=== PATIENT | male | born 1960 | race Caucasian/White ===

== ENCOUNTER 2016-05-12 23:54 | Emergency (ER) | payer MEDICARE, MEDICAID ==
[2016-05-13 00:08] VITALS: BP 140/98
--- NOTE | 2016-05-13 00:29 | ER Document Report ---
ED General - General Chief Complaint: Chest Pain Stated Complaint: CHEST PAIN Mode of Arrival: Medic Information source: Patient Notes: 56 yr old male with hx of htn, CAD, [place] in 2004 presents iwth complaints of midsternal chest pain that started prior ot arrival . pt denies any fevers or chills, nausea or vomiting. pt given nitro which helped with pain by ems but then pain returned, given fentanyl which has resolved his pain TRAVEL OUTSIDE OF THE [place] IN LAST 30 DAYS: No - HPI Onset: Just prior to arrival Onset/Duration: Sudden Quality of pain: Other - squeezing Severity: Moderate Pain Level: 2 Associated symptoms: Chest pain Exacerbated by: Denies Relieved by: Denies Similar symptoms previously: Yes Recently seen / treated by doctor: No - Related Data Allergies/Adverse Reactions: No Known Allergies Allergy (Verified 04/27/15 12:15) Past Medical History - Social History Smoking Status: Current Every Day Smoker Cigarette use (# per day): Yes Chew tobacco use (# tins/day): No Smoking Education Provided: Yes - Patient counselled regarding cessation for 4 minutes Family History: Reviewed & Not Pertinent - Past Medical History Cardiac Medical History: Reports: Hx Coronary Artery Disease, Hx Heart Attack, Hx Hypercholesterolemia, Hx Hypertension Pulmonary Medical History: Reports: Hx COPD Denies: Hx Asthma, Hx Bronchitis, Hx Pneumonia Neurological Medical History: Denies: Hx Cerebrovascular Accident, Hx Seizures GI Medical History: Reports: Hx Gastroesophageal Reflux Disease Musculoskeltal Medical History: Reports Hx Arthritis - hands Psychiatric Medical History: Reports: Hx Depression Past Surgical History: Reports: Hx Cardiac Catheterization, Hx Coronary Stent - Immunizations Immunizations up to date: No Hx Diphtheria, Pertussis, Tetanus Vaccination: No Review of Systems - Review of Systems Notes: REVIEW OF SYSTEMS: CONSTITUTIONAL : Denies fever, chills, or sweats. Denies recent illness. EENT: Denies eye, ear, throat, or mouth pain or symptoms. Denies nasal or sinus congestion or discharge. Denies throat, tongue, or mouth swelling or difficulty swallowing. CARDIOVASCULAR: chest pain RESPIRATORY: Denies cough, cold, or chest congestion. Denies shortness of breath, difficulty breathing, or wheezing. GASTROINTESTINAL: Denies abdominal pain or distention. Denies nausea, vomiting , or diarrhea. Denies blood in vomitus, stools, or per rectum. Denies black, tarry stools. Denies constipation. GENITOURINARY: Denies difficulty urinating, painful urination, burning, frequency, blood in urine, or discharge. MUSCULOSKELETAL: Denies back or neck pain or stiffness. Denies joint pain or swelling. SKIN: Denies rash, lesions or sores. HEMATOLOGIC : Denies easy bruising or bleeding. LYMPHATIC: Denies swollen, enlarged glands. NEUROLOGICAL: Denies confusion or altered mental status. Denies passing out or loss of consciousness. Denies dizziness or lightheadedness. Denies headache. Denies weakness or paralysis or loss of use of either side. Denies problems with gait or speech. Denies sensory loss, numbness, or tingling. Denies seizures. PSYCHIATRIC: Denies anxiety or stress. Denies depression, suicidal ideation, or homicidal ideation. ALL OTHER SYSTEMS REVIEWED AND NEGATIVE. Dictation was performed using [employer] voice recognition software PHYSICAL EXAMINATION: GENERAL: Well-appearing, well-nourished and in no acute distress. HEAD: Atraumatic, normocephalic. EYES: Pupils equal round and reactive to light, extraocular movements intact, sclera anicteric, conjunctiva are normal. ENT: Nares patent, oropharynx clear without exudates. Moist mucous membranes. NECK: Normal range of motion, supple without lymphadenopathy LUNGS: Breath sounds clear to auscultation bilaterally and equal. No wheezes rales or rhonchi. HEART: Regular rate and rhythm without murmurs ABDOMEN: Soft, nontender, nondistended abdomen. No guarding, no rebound. No masses appreciated. Musculoskeletal: Normal range of motion, no pitting or edema. No cyanosis. NEUROLOGICAL: Cranial nerves grossly intact. Normal speech, normal gait. Normal sensory, motor exams PSYCH: Normal mood, normal affect. SKIN: Warm, Dry, normal turgor, no rashes or lesions noted. Physical Exam - Vital signs Vitals: Temp Pulse Resp BP Pulse Ox 98.2 F 96 23 H 140/98 H 95 05/13/16 00:06 05/13/16 00:06 05/13/16 00:06 05/13/16 00:06 05/13/16 00:06 Course - Re-evaluation Re-evalutation: 05/13/16 00:28 Patient currently pain-free, lab work imaging are pending. Information notes patient has had a 20% on 30% blockage on heart cath last year therefore I have low suspicion for cardiac event 05/13/16 00:38 05/13/16 01:23 Pt is pain free, first set is negative, ekg is normal, pt refuses ot stay in the hopsital overnight and states he will follow up with cardiology on sunday. i explained multiple times iwth in room that this is not a comeplte workup and igvne his hx he should be amditted. pt promises to return immediately if there are any more pains After performing a Medical Screening Examination, I spoke with the patient at length in regards to leaving the hospital against medical advice. I do not believe the patient should leave but the patient is alert oriented x4, understands the risks and benefits of staying and leaving including disability and . Pt understands that he can return at any time for further care and is more than welcome to do so. Pt verbalizes this understanding. - Vital Signs Vital signs: Temp Pulse Resp BP Pulse Ox 98.2 F 96 23 H 140/98 H 95 05/13/16 00:06 05/13/16 00:06 05/13/16 00:06 05/13/16 00:06 05/13/16 00:06 - Laboratory Result Diagrams: 05/13/16 00:07 05/13/16 00:07 Laboratory results interpreted by me: 05/13/16 05/13/16 00:07 00:07 RBC 4.15 L Hgb 13.1 L MCV 98 H Potassium 3.4 L Glucose 121 H Creatine Kinase 182 H - EKG Interpretation by Wy EKG shows normal: Sinus rhythm, Celina, Intervals, QRS Complexes Discharge - Discharge Clinical Impression: Chest pain Qualifiers: Chest pain type: unspecified Qualified Code(s): R07.9 - Chest pain, unspecified Condition: Stable Disposition: AGAINST MEDICAL ADVICE Instructions: Chest Pain of Unclear Cause ([facility]) Additional Instructions: you must return immediately if there is any chest pain at all Referrals: ANTONIO DAMON FNP-C [Primary Care Provider] - Follow up as needed
[2016-05-13 00:50] LABS: ABSOLUTE BASOPHILS # (AUTO) 0.1 10^3/uL (0.0-0.2); ABSOLUTE EOSINOPHILS # (AUTO) 0.4 10^3/uL (0.0-0.6); ABSOLUTE LYMPHOCYTES (AUTO) 3.4 10^3/uL (0.5-4.7); ABSOLUTE MONOCYTES (AUTO) 1.1 10^3/uL (0.1-1.4); ABSOLUTE NEUT (AUTO) 4.4 10^3/uL (1.7-8.2); BASOPHILS % (AUTO) 0.6 % (0-2); EOSINOPHILS % (AUTO) 4.6 % (0-6); HEMATOCRIT 40.6 % (37.9-51.0); HEMOGLOBIN 13.1 g/dL (13.5-17.0); HGB HCT DIFFERENCE -1.3; LYMPHOCYTES % (AUTO) 35.8 % (13-45); MEAN CORPUSCULAR HEMOGLOBIN 31.6 pg (27.0-33.4); MEAN CORPUSCULAR HGB CONC 32.3 g/dL (32.0-36.0); MEAN CORPUSCULAR VOLUME 98 fl (80-97); MONOCYTES % (AUTO) 12.1 % (3-13); RED BLOOD COUNT 4.15 10^6/uL (4.35-5.55); RED CELL DISTRIBUTION WIDTH 13.4 % (11.5-14.0); SEGMENTED NEUTROPHILS % (AUTO) 46.9 % (42-78); WHITE BLOOD COUNT 9.4 10^3/uL (4.0-10.5)
[2016-05-13 00:56] LABS: ALANINE AMINOTRANSFERASE 28 U/L (21-72); ALBUMIN 3.5 g/dL (3.5-5.0); ALKALINE PHOSPHATASE 72 U/L (38-126); ANION GAP 12 (5-19); ASPARTATE AMINO TRANSFERASE 33 U/L (17-59); BILIRUBIN,TOTAL 0.5 mg/dL (0.2-1.3); BLOOD UREA NITROGEN 9 mg/dL (7-20); CALCIUM 9.1 mg/dL (8.4-10.2); CARBON DIOXIDE 25 mmol/L (22-30); CHLORIDE 106 mmol/L (98-107); CREATINE KINASE 182 U/L (55-170); CREATININE RESULT 0.81 mg/dL (0.52-1.25); GLUCOSE 121 mg/dL (75-110); POTASSIUM 3.4 mmol/L (3.6-5.0); SODIUM 143.3 mmol/L (137-145); TOTAL PROTEIN 6.3 g/dL (6.3-8.2)
[2016-05-13 01:16] LABS: TROPONIN I < 0.012 ng/mL
--- NOTE | 2016-05-13 09:23 | EKG REPORT ---
SEVERITY:- NORMAL ECG - SINUS RHYTHM : Confirmed by: Joanna Ramos MD 13-May-2016 09:23:02
== END 2016-05-13 01:34 | disposition left against medical advice (07) ==
LOC: ER 23:54
DX: R07.9 Chest pain, unspecified (principal); I25.10 Atherosclerotic heart disease of native coronary artery without angina pectoris; I25.2 Old myocardial infarction; I10 Essential (primary) hypertension; F17.210 Nicotine dependence, cigarettes, uncomplicated; Z71.6 Tobacco abuse counseling; J44.9 Chronic obstructive pulmonary disease, unspecified; Z98.61 Coronary angioplasty status; Z53.20 Procedure and treatment not carried out because of patient's decision for unspecified reasons
CPT/HCPCS: 36415; 80053; 82550; 82553; 84484; 85025; 93005; 93010; 99285

== ENCOUNTER → 2017-08-30 | Day surgery (SDC) | payer MEDICAID, MEDICARE ==
[~2017-08-30] MED LIST: BUPIVACAINE HCL 0.5 % INJ/PF 30 ML SDV ONE; LIDOCAINE 1% INJ-PF (10 MG/ML) 30 ML SDV ONE
--- NOTE | 2017-08-30 09:14 | Operative Report ---
PREOPERATIVE DIAGNOSIS: Spondylolisis without myopathy or radiculopathy M47.818 POSTOPERATIVE DIAGNOSIS:Spondylolisis without myopathy or radiculopathy M47.818 PROCEDURE: 1. Radiofrequency Ablation of bilateral L5 dorsal Ramus 2. Sacroiliac Joint Ablation - Lateral Branches of bilateral S1, S2, S3 DATE OF PROCEDURE: August 30, 2017 ANESTHESIA: Local COMPLICATIONS: None CONSENT: A full description of the procedure was provided including benefits as well as possible complications. All questions were answered and informed consent was given and signed. ASA guidelines for fasting were verified prior to sedation. PROCEDURE IN DETAIL The patient was brought into the fluoroscopy suite and carefully assisted into the prone position on the fluoroscopy table and allowed to adjust to a position of comfort. A grounding pad was placed on the right thigh. The low back and buttocks were widely prepped with a chloraprep solution, allowed to air dry and draped in standard sterile surgical fashion. Local anesthesia was provided by 12 mL of 1 % lidocaine delivered with a 25 g needle. PROCEDURE #1: Radiofrequency Ablation of Dorsal Ramus of bilateral L5. A 17g 100mm radiofrequency introducer needle was placed to the planned anatomic target, guided with intermittent fluoroscopy with a perpendicular approach, to terminally place at the bilateral sacral ala. The stylets were removed and the radiofrequency probes with a 4mm active tip were then inserted. Needle tip position of the probes were verified in the AP, oblique, and lateral views. At each site, the medial branch nerve was stimulated at 2Hz to a maximum of 1- 2volts determined to finalize safe needle and electrode placement. The patient was awake and responsive during this portion of the procedure. Each target was anesthetized with 2mL of 2 % Sensorcaine anesthesia for lesioning and then each target was lesioned at 80 degrees Celsius for 2 minutes and 30 seconds. Tissue impedences were noted to be between 250 and 500 Ohms. PROCEDURE #2: Radiofrequency Ablation of bilateral S1, S2, S3 Lateral Branches Using the AP fluoroscopic view for visualization of the lateral PSFA as defined by the pre-placed 27-gauge Quincke needles, appropriate skin starting positions were defined. Using the PSFA as a "clock-face", the positions were: S1; Right = 1 oclock, 3 oclock and 5 oclock S2; Right = 1 oclock, 3 oclock and 5 oclock S3; Right = 1 oclock, 5 oclock Using fluoroscopic guidance, a 17g introducer needle was inserted sequentially onto the target positions described above until the introducer tip touched the bony surface of the sacrum. The stylet was withdrawn from the introducer and the radiofrequency probe with a 4 mm active tip was fully inserted into the introducer. A lateral view was obtained for standard reference. At each of the targets, needle placement was verified with the use of multi-planar fluoroscopy. The needle tip position was approximately 7 - 10mm lateral to the PSFA as determined by using an Epsilon ruler. At each site, the lateral branch nerve was stimulated at 2 Hz to a maximum of 1- 2 volts determined to finalize safe needle and electrode placement. The patient was awake and responsive during this portion of the procedure. Each target was anesthetized with 2 mL of 2 % Sensorcaine anesthesia for lesioning and then each target was lesioned at 80 degrees Celsius for 2 minutes and 30 seconds. Tissue impedences were noted to be between 250- 500 Ohms. At the conclusion of the lesioning the needles were removed and bandages placed over the needle placement sites and the patient returned to the supine position on a stretcher and transported to the recovery room without hemodynamic, neurologic, or allergic reactions. Fluoroscopic images were printed for hard copy recording and digitally archived. FLUOROSCOPIC INTERPRETATION: Appropriate epidurogram obtained. Appropriate lesioning of the 10 targets noted. POST PROCEDURE EVALUATION: The patient was comfortable in the recovery room. The patient is aware that pain may worsen before remitting and 4 6 weeks may be required prior to the onset of pain relief. IMPRESSION: 1. Technically successful sacral lateral branch, lumbar dorsal ramus for denervation from L5-S3 on the bilateral without complication. 2. RTC in 2 weeks. 3. Estimated Blood Loss: None 4. Fluoroscopy time: 60 seconds
== END ==
LOC: RAD 08:40
PROVIDERS: ATTEND Family Medicine
DX: M47.818 Spondylosis without myelopathy or radiculopathy, sacral and sacrococcygeal region (principal)
CPT/HCPCS: 64635 ×2; 64640 ×6; J3490 ×2

== ENCOUNTER 2018-07-28 07:08 | Inpatient (IN) | payer MEDICARE ==
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
[2018-07-28] MEDS ORDERED: NORMAL SALINE 1000 ML 1,000 ML IV ONE ×2 (08:22→12:04)
[2018-07-28] MEDS ORDERED: MORPHINE SULFATE 10 MG/ML INJ IV ONE ×4 (08:22→18:00)
[2018-07-28] MEDS ORDERED: ONDANSETRON HCL INJ/PF 4 MG/2 ML SDV IV ONE (08:35)
[2018-07-28 09:58] LABS: ABSOLUTE EOSINOPHILS # (AUTO) 0.1 10^3/uL (0.0-0.6); ABSOLUTE LYMPHOCYTES (AUTO) 1.2 10^3/uL (0.5-4.7); ABSOLUTE MONOCYTES (AUTO) 0.9 10^3/uL (0.1-1.4); ABSOLUTE NEUT (AUTO) 10.5 10^3/uL (1.7-8.2); BASOPHILS % (AUTO) 0.2 % (0-2); EOSINOPHILS % (AUTO) 0.8 % (0-6); HEMATOCRIT 48.4 % (37.9-51.0); HEMOGLOBIN 16.7 g/dL (13.5-17.0); LYMPHOCYTES % (AUTO) 9.2 % (13-45); MEAN CORPUSCULAR HEMOGLOBIN 32.1 pg (27.0-33.4); MEAN CORPUSCULAR HGB CONC 34.4 g/dL (32.0-36.0); MEAN CORPUSCULAR VOLUME 93 fl (80-97); MONOCYTES % (AUTO) 7.1 % (3-13); PLATELET COUNT 304 10^3/uL (150-450); RED BLOOD COUNT 5.19 10^6/uL (4.35-5.55); RED CELL DISTRIBUTION WIDTH 14.2 % (11.5-14.0); SEGMENTED NEUTROPHILS % (AUTO) 82.7 % (42-78); TOTAL CELLS COUNTED % (AUTO) 100 %; WHITE BLOOD COUNT 12.7 10^3/uL (4.0-10.5)
[2018-07-28 10:03] LABS: INTERNATIONAL RATION (INR) 0.91; PROTHROMBIN TIME 12.7 SEC (11.4-15.4)
[2018-07-28 10:04] LABS: PARTIAL THROMBOPLASTIN TIME 25.8 SEC (23.5-35.8)
[2018-07-28 10:22] LABS: ALANINE AMINOTRANSFERASE 29 U/L (21-72); ALBUMIN 4.6 g/dL (3.5-5.0); ALKALINE PHOSPHATASE 98 U/L (38-126); ANION GAP 14 (5-19); ASPARTATE AMINO TRANSFERASE 30 U/L (17-59); BILIRUBIN,DIRECT 0.4 mg/dL (0.0-0.4); BILIRUBIN,TOTAL 0.6 mg/dL (0.2-1.3); BLOOD UREA NITROGEN 15 mg/dL (7-20); C-REACTIVE PROTEIN 25.3 mg/L (<10.0); CALCIUM 10.9 mg/dL (8.4-10.2); CARBON DIOXIDE 20 mmol/L (22-30); CHLORIDE 107 mmol/L (98-107); GLUCOSE 156 mg/dL (75-110); LIPASE 57.2 U/L (23-300); POTASSIUM 4.2 mmol/L (3.6-5.0); SODIUM 140.6 mmol/L (137-145); TOTAL PROTEIN 8.1 g/dL (6.3-8.2)
[2018-07-28 11:13] LABS: APPEARANCE,URINE SLIGHTLY-CLOUDY; BILIRUBIN,URINE NEGATIVE (NEGATIVE); GLUCOSE, URINE NEGATIVE (NEGATIVE); KETONES,URINE NEGATIVE (NEGATIVE); LEUKOCYTE ESTERASE,URINE NEGATIVE (NEGATIVE); NITRITE,URINE NEGATIVE (NEGATIVE); PROTEIN,URINE 30 mg/dL (NEGATIVE); URINE SPECIFIC GRAVITY 1.026
[2018-07-28 11:14] LABS: COLOR,URINE DARK YELLOW
[2018-07-28] MEDS ORDERED: DIPHENHYDRAMINE HCL 50 MG/ML VIAL IV ONE (11:18)
--- NOTE | 2018-07-28 12:20 | RADIOLOGY REPORT (SQ) ---
EXAM DESCRIPTION: CT ABD/PELVIS WITH IV ORAL COMPLETED DATE/TIME: 07/28/2018 11:33 am REASON FOR STUDY: RLQ, umbilical pain COMPARISON: 09/18/2015. TECHNIQUE: CT scan of the abdomen and pelvis performed using helical scanning technique with dynamic intravenous contrast injection and with oral contrast. Images reviewed with lung, soft tissue, and b one windows. Reconstructed coronal and sagittal MPR images reviewed. Delayed images for evaluation of the urinary system also acquired. All images stored on PACS. All CT scanners at this facility use dose modulation, iterative reconstruction, and/or weight based d osing when appropriate to reduce radiation dose to as low as reasonably achievable (ALARA). [facility]: Dose Right [facility]: CareDose [facility]: Dose Right [facility]: Teradose 4D [facility]: [employer] CONTRAST TYPE AND DOSE: contrast/concentration: Isovue 350.00 mg/ml; Total Contrast Delivered: 100.0 ml; Total Saline Delivered: 73.0 ml RENAL FUNCTION: BUN 15 creatinine 0.85. RADIATION DOSE: CT Rad equipment meets quality standard of care and radiation dose reduction techniq ues were employed. CTDIvol: 16.3 - 18.8 mGy. DLP: 2113 mGy-cm.. LIMITATIONS: None. FINDINGS: LOWER CHEST: Calcified granuloma and calcified lymph nodes. No nodules or infiltrates. LIVER: Normal size. No masses. No dilated ducts. SPLEEN: Normal size. Punctate calcifications this is with calcified granulomas. No focal lesions. PANCREAS: No masses. No significant calcifications. No adjacent inflammation or peripancreatic fluid collections. Pancreatic duct not dilated. GALLBLADDER: No identified stones by CT criteria. No inflammatory changes to suggest cholecystitis. ADRENAL GLANDS: No significant masses or asymmetry. RIGHT KIDNEY AND URETER: No solid masses. No significant calcifications. No hydronephrosis or hyd roureter. LEFT KIDNEY AND URETER: No solid masses. No significant calcifications. No hydronephrosis or hydr oureter. AORTA AND VESSELS: No aneurysm. No dissection. Renal arteries, SMA, celiac without stenosis. RETROPERITONEUM: No retroperitoneal adenopathy, hemorrhage or masses. BOWEL AND PERITONEAL CAVITY: Mild small bowel dilation, similar to the prior study. No masses or inf lammatory changes. No free fluid or peritoneal masses. APPENDIX: Normal. PELVIS: No mass. Trace free fluid. Normal bladder. ABDOMINAL WALL: No masses. No hernias. BONES: No significant or acute findings. Degenerative changes in the spine. Previous lower lumbar l aminectomy. OTHER: No other significant finding. IMPRESSION: 1. MILD SMALL BOWEL DILATION, SIMILAR TO THE PRIOR STUDY. THIS IS SUGGESTIVE OF EARLY OR PARTIAL SMA LL BOWEL OBSTRUCTION. A FOCAL TRANSITION POINT IS NOT EVIDENT. 2. NO OTHER SIGNIFICANT OR ACUTE FINDING IN THE ABDOMEN OR PELVIS ON CT SCAN WITH IV CONTRAST. TECHNICAL DOCUMENTATION: JOB ID: [id number] Quality ID # [id number]: Final reports with documentation of one or more dose reduction techniques (e.g., Au tomated exposure control, adjustment of the mA and/or kV according to patient size, use of iterative reconstruction technique) 2010 [employer]- All Rights Reserved Reading location - IP/workstation name: [email or web address]
[2018-07-28] MEDS ORDERED: FENTANYL CITRATE INJ/PF 100 MCG/2 ML AMPUL IV ONE (12:44)
[2018-07-28 14:06] LABS: CREATINE KINASE MB 2.28 ng/mL (<4.55)
[2018-07-28 14:07] LABS: TROPONIN I < 0.012 ng/mL
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
[2018-07-28] MEDS ORDERED: ACETAMINOPHEN 325 MG TABLET PO PRN (15:03)
[2018-07-28] MEDS ORDERED: IPRATROPIUM/ALBUTEROL 0.5-2.5 MG/3 ML AMPUL NEB PRN (15:03)
[2018-07-28] MEDS ORDERED: DEXTROSE 40% GEL 15 GM TUBE PO PRN ×2 (15:03)
[2018-07-28] MEDS ORDERED: GLUCAGON,HUMAN RECOMB 1 MG INJ SUBCUT PRN (15:03)
[2018-07-28] MEDS ORDERED: PROMETHAZINE HCL 25 MG TABLET PO PRN (15:03)
[2018-07-28] MEDS ORDERED: ONDANSETRON 4 MG TAB.RAPDIS PO PRN (15:03)
[2018-07-28] MEDS ORDERED: DEXTROSE 50%-WATER 25 GM/50 ML DISP.SYRIN IV PRN ×2 (15:03)
[2018-07-28] MEDS ORDERED: NITROGLYCERIN 0.4 MG/TAB 25 TAB/BOTTLE SL PRN (15:32)
--- NOTE | 2018-07-28 15:39 | RADIOLOGY REPORT (SQ) ---
EXAM DESCRIPTION: KUB/ABDOMEN (SINGLE VIEW) COMPLETED DATE/TIME: 07/28/2018 2:40 pm REASON FOR STUDY: check ng placement COMPARISON: CT abdomen pelvis 07/28/2018 NUMBER OF VIEWS: One view. TECHNIQUE: Supine radiographic image of the lower chest/ upper abdomen abdomen acquired. LIMITATIONS: None. FINDINGS: Nasogastric tube tip and side port in the stomach. Stomach is decompressed since the CT e xam. Persistent dilated small bowel loops in the upper abdomen. Lung bases are free of focal infilt rate IMPRESSION: Nasogastric tube tip and side port in the stomach TECHNICAL DOCUMENTATION: JOB ID: [id number]- All Rights Reserved Reading location - IP/workstation name: [email or web address]
[2018-07-28] MEDS: DEXTROSE 5%-NORMAL SALINE 1,000 ML IV PRN (15:46)
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
[2018-07-28] MEDS ORDERED: MORPHINE SULFATE 10 MG/ML INJ IV PRN (17:40)
[2018-07-28] MEDS: PANTOPRAZOLE SODIUM 40 MG TABLET.DR PO SCH (17:47)
[2018-07-28] MEDS: PREGABALIN 100 MG CAPSULE PO SCH (17:49)
--- NOTE | 2018-07-28 18:16 | RADIOLOGY REPORT (SQ) ---
EXAM DESCRIPTION: KUB/ABDOMEN (SINGLE VIEW) COMPLETED DATE/TIME: 07/28/2018 6:00 pm REASON FOR STUDY: SBO COMPARISON: 07/28/2018. NUMBER OF VIEWS: One view. TECHNIQUE: Supine radiographic image of the abdomen acquired. LIMITATIONS: None. FINDINGS: BOWEL GAS PATTERN: Normal bowel gas pattern. No dilated loops. CALCIFICATIONS: No suspicious calcifications. SOFT TISSUES: No gross mass or suggestion of organomegaly. HARDWARE: Nasogastric tube with the tip in the stomach. BONES: No acute fracture. Degenerative changes in the spine. No worrisome bone lesions. OTHER: Contrast present in the bladder. There is a faint oral contrast present in the colon. IMPRESSION: NASOGASTRIC TUBE WITH THE TIP IN THE STOMACH. FAINT ORAL CONTRAST IS PRESENT IN THE DIS MIAH COLON. TECHNICAL DOCUMENTATION: JOB ID: [id number] [employer]- All Rights Reserved Reading location - IP/workstation name: [email or web address]
--- NOTE | 2018-07-28 20:12 | EKG REPORT ---
SEVERITY:- OTHERWISE NORMAL ECG - SINUS RHYTHM VENTRICULAR PREMATURE COMPLEX : Confirmed by: Joanna Ramos MD 28-Jul-2018 20:10:28
[2018-07-28] MEDS: CYCLOBENZAPRINE HCL 10 MG TABLET PO SCH (21:53)
[2018-07-28] MEDS: METOPROLOL TARTRATE 50 MG TABLET PO SCH (21:54)
[2018-07-28] MEDS: LISINOPRIL 10 MG TABLET PO SCH (21:56)
[2018-07-28] MEDS: RANOLAZINE 500 MG TAB.SR.12H PO SCH (21:56)
[2018-07-28] MEDS: MORPHINE SULFATE 10 MG/ML INJ IV PRN (21:57)
[2018-07-28] MEDS ORDERED: (PENDING PHARMACY ID) (Pregabalin [Lyrica] 200 MG) PO SCH (22:00)
[2018-07-28] MEDS ORDERED: METOPROLOL TARTRATE 50 MG TABLET PO SCH (22:00)
[2018-07-29] MEDS: PREGABALIN 100 MG CAPSULE PO SCH ×3 (02:22→17:17)
[2018-07-29] MEDS: PANTOPRAZOLE SODIUM 40 MG TABLET.DR PO SCH ×2 (05:39→17:17)
[2018-07-29] MEDS: DEXTROSE 5%-NORMAL SALINE 1,000 ML IV PRN (05:41)
[2018-07-29] MEDS: MORPHINE SULFATE 10 MG/ML INJ IV PRN ×3 (05:48→22:07)
[2018-07-29] MEDS ORDERED: HEPARIN SOD (PORCINE) 5,000 UNIT/ML 1 ML SYRINGE SUBCUT SCH (06:00)
[2018-07-29 06:36] LABS: ABSOLUTE EOSINOPHILS # (AUTO) 0.4 10^3/uL (0.0-0.6); INTERNATIONAL RATION (INR) 0.99; MEAN CORPUSCULAR HEMOGLOBIN 32.2 pg (27.0-33.4); MEAN CORPUSCULAR HGB CONC 34.4 g/dL (32.0-36.0); MEAN CORPUSCULAR VOLUME 94 fl (80-97); PARTIAL THROMBOPLASTIN TIME 27.5 SEC (23.5-35.8); PLATELET COUNT 219 10^3/uL (150-450); PROTHROMBIN TIME 13.6 SEC (11.4-15.4); TOTAL CELLS COUNTED % (AUTO) 100 %
[2018-07-29 06:38] LABS: HEMOGLOBIN 14.2 g/dL (13.5-17.0)
[2018-07-29 06:39] LABS: HEMATOCRIT 41.1 % (37.9-51.0); WHITE BLOOD COUNT 8.4 10^3/uL (4.0-10.5)
[2018-07-29 06:40] LABS: ABSOLUTE LYMPHOCYTES (AUTO) 2.1 10^3/uL (0.5-4.7); ABSOLUTE MONOCYTES (AUTO) 1.4 10^3/uL (0.1-1.4); ABSOLUTE NEUT (AUTO) 4.4 10^3/uL (1.7-8.2); BASOPHILS % (AUTO) 0.4 % (0-2); EOSINOPHILS % (AUTO) 4.7 % (0-6); MONOCYTES % (AUTO) 16.9 % (3-13); RED CELL DISTRIBUTION WIDTH 14.2 % (11.5-14.0)
[2018-07-29 06:48] LABS: ALANINE AMINOTRANSFERASE 29 U/L (21-72); ALBUMIN 3.2 g/dL (3.5-5.0); ALKALINE PHOSPHATASE 63 U/L (38-126); ANION GAP 9 (5-19); ASPARTATE AMINO TRANSFERASE 19 U/L (17-59); BILIRUBIN,DIRECT 0.3 mg/dL (0.0-0.4); BILIRUBIN,TOTAL 0.7 mg/dL (0.2-1.3); BLOOD UREA NITROGEN 12 mg/dL (7-20); CARBON DIOXIDE 20 mmol/L (22-30); CHLORIDE 111 mmol/L (98-107); GLUCOSE 113 mg/dL (75-110); POTASSIUM 3.9 mmol/L (3.6-5.0); TOTAL PROTEIN 5.8 g/dL (6.3-8.2)
[2018-07-29] MEDS: RANOLAZINE 500 MG TAB.SR.12H PO SCH ×2 (10:43→22:04)
[2018-07-29] MEDS: METOPROLOL TARTRATE 50 MG TABLET PO SCH ×2 (10:43→22:06)
[2018-07-29] MEDS: FLUTICASONE/VILANTEROL 100-25 MCG/DOSE IH SCH (10:44)
--- NOTE | 2018-07-29 12:14 | RADIOLOGY REPORT (SQ) ---
EXAM DESCRIPTION: KUB/ABDOMEN (SINGLE VIEW) COMPLETED DATE/TIME: 07/29/2018 11:33 am REASON FOR STUDY: pSBO COMPARISON: CT abdomen pelvis 07/28/2018 Abdominal films 07/28/2018 NUMBER OF VIEWS: One view. TECHNIQUE: Supine radiographic image of the abdomen acquired. LIMITATIONS: None. FINDINGS: BOWEL GAS PATTERN: Oral contrast given for CT exam 07/28/2018 is now identified in the colo n. Few nonspecific non dilated small bowel loops in the left upper quadrant and right lower quadrant . Stomach decompressed by a nasogastric tube. CALCIFICATIONS: No suspicious calcifications. SOFT TISSUES: No gross mass or suggestion of organomegaly. HARDWARE: Nasogastric tube tip and side port in the stomach. BONES: Degenerative disc changes lumbar spine OTHER: No other significant finding. IMPRESSION: Oral contrast given for CT exam 07/28/2018 1057 hours is now seen in nondistended colon. Few persistent air-filled nondilated left upper quadrant and right lower quadrant small bowel loops. TECHNICAL DOCUMENTATION: JOB ID: [id number] [employer]- All Rights Reserved Reading location - IP/workstation name: [email or web address]
--- NOTE | 2018-07-29 16:51 | PDOC PROGRESS REPORT ---
Subjective Subjective:: Patient states he is passing gas and having some poop. He is anxious to be released to that he can get his back surgery previously scheduled for tomorrow. Reason For Visit: SBO,GASTROENTERITIS Physical Exam Vital Signs: Temp Pulse Resp BP Pulse Ox 97.8 F 76 16 104/52 L 92 07/29/18 07:18 07/29/18 14:00 07/29/18 11:02 07/29/18 07:18 07/29/18 11:02 Intake & Output 07/28/18 07/29/18 07/30/18 06:59 06:59 06:59 Intake Total 3000 Balance 3000 Weight 58.7 kg General appearance: PRESENT: no acute distress GI/Abdominal exam: PRESENT: other - Abdomen is soft, nontender no peritoneal signs no rigidity. Operative scars consistent with previous surgery. Results Laboratory Results: 07/29/18 05:37 07/29/18 05:37 07/29/18 07/29/18 05:37 05:37 WBC 8.4 RBC 4.40 Hgb 14.2 D Hct 41.1 MCV 94 MCH 32.2 MCHC 34.4 RDW 14.2 H Plt Count 219 Seg Neutrophils % 53.0 Lymphocytes % 25.0 Monocytes % 16.9 H Eosinophils % 4.7 Basophils % 0.4 Absolute Neutrophils 4.4 Absolute Lymphocytes 2.1 Absolute Monocytes 1.4 Absolute Eosinophils 0.4 Absolute Basophils 0.0 Sodium 140.0 Potassium 3.9 Chloride 111 H Carbon Dioxide 20 L Anion Gap 9 BUN 12 Creatinine 0.79 Est GFR ( Amer) > 60 Est GFR (Non-Af Amer) > 60 Glucose 113 H Calcium 9.0 Magnesium 1.5 L Total Bilirubin 0.7 AST 19 ALT 29 Alkaline Phosphatase 63 Total Protein 5.8 L Albumin 3.2 L 07/28/18 07/28/18 09:25 09:25 Creatine Kinase 122 CK-MB (CK-2) 2.28 Troponin I < 0.012 Impressions: Abdomen/Pelvis CT 07/28/18 00:00 IMPRESSION: 1. MILD SMALL BOWEL DILATION, SIMILAR TO THE PRIOR STUDY. THIS IS SUGGESTIVE OF EARLY OR PARTIAL SMALL BOWEL OBSTRUCTION. A FOCAL TRANSITION POINT IS NOT EVIDENT. 2. NO OTHER SIGNIFICANT OR ACUTE FINDING IN THE ABDOMEN OR PELVIS ON CT SCAN WITH IV CONTRAST. KUB X-Ray 04/01/19 00:00 IMPRESSION: Oral contrast given for CT exam 07/28/2018 1057 hours is now seen in nondistended colon. Few persistent air-filled nondilated left upper quadrant and right lower quadrant small bowel loops. Assessment & Plan - Diagnosis (1) Nausea & vomiting Qualifiers: Vomiting type: bilious vomiting Qualified Code(s): R11.14 - Bilious vomiting Is this a current diagnosis for this admission?: Yes Plan: Impression: Clinically improved; low suspicion for small bowel obstruction; abdominal films show gas and contrast in colon; minimal gas in the small intestine. Recommendations: 1. Discontinue nasogastric tube; this is performed at bedside 2. Start clear liquids-order activated 3. I spoke with Dr. Noel; I think patient can have his diet advanced and discharged home. We agree that undergoing active operative back surgery in less than 24 hours is probably not in his best interest; however patient is adamant about having the procedure done for pain relief. 4. Surgery will sign off for now; reconsult if needed.
--- NOTE | 2018-07-29 18:00 | PDOC PROGRESS REPORT ---
Subjective Progress Note for:: 07/29/18 Subjective:: No adverse events overnight. His chief concern was to get out of here today so that he can have his back surgery tomorrow. I told him that if his surgeon found out that he was in the hospital for any reason he would probably not do surgery the very next day. He said that he was passing gas. Reason For Visit: SBO,GASTROENTERITIS Physical Exam Vital Signs: Temp Pulse Resp BP Pulse Ox 97.8 F 76 16 104/52 L 92 07/29/18 07:18 07/29/18 14:00 07/29/18 11:02 07/29/18 07:18 07/29/18 11:02 Intake & Output 07/28/18 07/29/18 07/30/18 06:59 06:59 06:59 Intake Total 3000 Balance 3000 Weight 58.7 kg General appearance: PRESENT: no acute distress, disheveled. ABSENT: cooperative Respiratory exam: PRESENT: clear to auscultation tadeo, symmetrical, unlabored. ABSENT: accessory muscle use, crackles, prolonged expiratory phas, rhonchi, tachypnea, wheezes Cardiovascular exam: PRESENT: RRR, +S1, +S2 Pulses: PRESENT: normal carotid pulses Vascular exam: PRESENT: normal capillary refill GI/Abdominal exam: PRESENT: normal bowel sounds - He was on suction at the time via the NG tube, soft. ABSENT: distended, guarding, rebound, tenderness Extremities exam: ABSENT: clubbing, pedal edema Musculoskeletal exam: PRESENT: normal inspection. ABSENT: deformity Neurological exam: PRESENT: alert, awake, oriented to person, oriented to place, oriented to time, oriented to situation Psychiatric exam: PRESENT: agitated Skin exam: PRESENT: dry, warm Results Laboratory Results: 07/29/18 05:37 07/29/18 05:37 07/29/18 07/29/18 05:37 05:37 WBC 8.4 RBC 4.40 Hgb 14.2 D Hct 41.1 MCV 94 MCH 32.2 MCHC 34.4 RDW 14.2 H Plt Count 219 Seg Neutrophils % 53.0 Lymphocytes % 25.0 Monocytes % 16.9 H Eosinophils % 4.7 Basophils % 0.4 Absolute Neutrophils 4.4 Absolute Lymphocytes 2.1 Absolute Monocytes 1.4 Absolute Eosinophils 0.4 Absolute Basophils 0.0 Sodium 140.0 Potassium 3.9 Chloride 111 H Carbon Dioxide 20 L Anion Gap 9 BUN 12 Creatinine 0.79 Est GFR ( Amer) > 60 Est GFR (Non-Af Amer) > 60 Glucose 113 H Calcium 9.0 Magnesium 1.5 L Total Bilirubin 0.7 AST 19 ALT 29 Alkaline Phosphatase 63 Total Protein 5.8 L Albumin 3.2 L 07/28/18 07/28/18 09:25 09:25 Creatine Kinase 122 CK-MB (CK-2) 2.28 Troponin I < 0.012 Impressions: Abdomen/Pelvis CT 07/28/18 00:00 IMPRESSION: 1. MILD SMALL BOWEL DILATION, SIMILAR TO THE PRIOR STUDY. THIS IS SUGGESTIVE OF EARLY OR PARTIAL SMALL BOWEL OBSTRUCTION. A FOCAL TRANSITION POINT IS NOT EVIDENT. 2. NO OTHER SIGNIFICANT OR ACUTE FINDING IN THE ABDOMEN OR PELVIS ON CT SCAN WITH IV CONTRAST. KUB X-Ray 07/29/18 00:00 IMPRESSION: Oral contrast given for CT exam 07/28/2018 1057 hours is now seen in nondistended colon. Few persistent air-filled nondilated left upper quadrant and right lower quadrant small bowel loops. Assessment and Plan - Diagnosis (1) Partial small bowel obstruction Is this a current diagnosis for this admission?: Yes Plan: Surgery plans to remove the NG tube today and try him on clear liquids. If he tolerates this overnight we can discharge him home in the morning. - Time Time Spent with patient: 25-34 minutes
[2018-07-29] MEDS: OXYCODONE-ACETAMINOPHEN 5-325 MG TABLET PO PRN (19:03)
[2018-07-29] MEDS: OXYCODONE HCL IR 5 MG TABLET PO PRN (19:03)
[2018-07-29] MEDS: LISINOPRIL 10 MG TABLET PO SCH (22:04)
[2018-07-29] MEDS: CYCLOBENZAPRINE HCL 10 MG TABLET PO SCH (22:06)
[2018-07-30] MEDS: PREGABALIN 100 MG CAPSULE PO SCH ×2 (00:58→09:12)
[2018-07-30] MEDS: OXYCODONE-ACETAMINOPHEN 5-325 MG TABLET PO PRN ×2 (00:58→08:04)
[2018-07-30] MEDS: PANTOPRAZOLE SODIUM 40 MG TABLET.DR PO SCH (05:36)
[2018-07-30 05:38] LABS: ABSOLUTE BASOPHILS # (AUTO) 0.1 10^3/uL (0.0-0.2); ABSOLUTE EOSINOPHILS # (AUTO) 0.3 10^3/uL (0.0-0.6); ABSOLUTE LYMPHOCYTES (AUTO) 2.5 10^3/uL (0.5-4.7); ABSOLUTE MONOCYTES (AUTO) 1.1 10^3/uL (0.1-1.4); ABSOLUTE NEUT (AUTO) 3.1 10^3/uL (1.7-8.2); BASOPHILS % (AUTO) 0.8 % (0-2); EOSINOPHILS % (AUTO) 4.6 % (0-6); HEMATOCRIT 39.3 % (37.9-51.0); HEMOGLOBIN 13.4 g/dL (13.5-17.0); LYMPHOCYTES % (AUTO) 35.8 % (13-45); MEAN CORPUSCULAR HEMOGLOBIN 31.9 pg (27.0-33.4); MEAN CORPUSCULAR HGB CONC 34.1 g/dL (32.0-36.0); MEAN CORPUSCULAR VOLUME 94 fl (80-97); MONOCYTES % (AUTO) 15.6 % (3-13); PLATELET COUNT 210 10^3/uL (150-450); SEGMENTED NEUTROPHILS % (AUTO) 43.2 % (42-78); TOTAL CELLS COUNTED % (AUTO) 100 %; WHITE BLOOD COUNT 7.1 10^3/uL (4.0-10.5)
[2018-07-30] MEDS: OXYCODONE HCL IR 5 MG TABLET PO PRN (08:02)
[2018-07-30] MEDS: RANOLAZINE 500 MG TAB.SR.12H PO SCH (09:13)
[2018-07-30] MEDS: METOPROLOL TARTRATE 50 MG TABLET PO SCH (09:13)
[2018-07-30] MEDS: FLUTICASONE/VILANTEROL 100-25 MCG/DOSE IH SCH (09:15)
[2018-07-30 13:27] VITALS: BP 131/72
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
== END 2018-07-30 15:25 | disposition home or self-care (01) | DRG 390 ==
LOC: ER 07:08 → EH 13:16 → 5 15:18 → 3S 16:59
PROVIDERS: ADMIT Internal Medicine; ATTEND Internal Medicine
DX: K56.600 Partial intestinal obstruction, unspecified as to cause (principal); K59.03 Drug induced constipation; Z79.899 Other long term (current) drug therapy; I25.10 Atherosclerotic heart disease of native coronary artery without angina pectoris; Z95.5 Presence of coronary angioplasty implant and graft; I10 Essential (primary) hypertension; J44.9 Chronic obstructive pulmonary disease, unspecified; E78.5 Hyperlipidemia, unspecified; K21.9 Gastro-esophageal reflux disease without esophagitis; M47.896 Other spondylosis, lumbar region; K52.9 Noninfective gastroenteritis and colitis, unspecified; M13.842 Other specified arthritis, left hand; M13.841 Other specified arthritis, right hand; F32.9 Major depressive disorder, single episode, unspecified; Z87.891 Personal history of nicotine dependence; Z86.010 Personal history of colon polyps; I25.2 Old myocardial infarction
CPT/HCPCS: 36415; 74018; 74177; 80053; 81001; 82272; 82550; 82553; 83036; 83605; 83690; 83735; 84484; 85025; 85610; 85730; 86140; 93005; 93010; 94640; 96361; 96374; 96375; 96376; 99285; J1200; J2270; J2405; J3490; J7030; J7620

== ENCOUNTER → 2019-06-26 | Day surgery (SDC) | payer MEDICARE, MEDICAID ==
--- NOTE | 2019-06-26 08:32 | Operative Report ---
PREOPERATIVE DIAGNOSIS: Spondylolisis without myopathy or radiculopathy M47.818// Lumbar Sacral Spondylolisis without myopathy or radiculopathy M47.817 POSTOPERATIVE DIAGNOSIS:Spondylolisis without myopathy or radiculopathy M47.818// Lumbar Sacral Spondylolisis without myopathy or radiculopathy M47.817 PROCEDURE: 1. Radiofrequency Ablation of bilateral L5 dorsal Ramus 2. Sacroiliac Joint Ablation - Lateral Branches of bilateral S1, S2, S3 DATE OF PROCEDURE: June 26, 2019 ANESTHESIA: Local COMPLICATIONS: None CONSENT: A full description of the procedure was provided including benefits as well as possible complications. All questions were answered and informed consent was given and signed. ASA guidelines for fasting were verified prior to sedation. PROCEDURE IN DETAIL The patient was brought into the fluoroscopy suite and carefully assisted into the prone position on the fluoroscopy table and allowed to adjust to a position of comfort. A grounding pad was placed on the right thigh. The low back and buttocks were widely prepped with a chloraprep solution, allowed to air dry and draped in standard sterile surgical fashion. Local anesthesia was provided by 12 mL of 1 % lidocaine delivered with a 25 g needle. PROCEDURE #1: Radiofrequency Ablation of Dorsal Ramus of bilateral L5. A 17g 75 mm radiofrequency introducer needle was placed to the planned anatomic target, guided with intermittent fluoroscopy with a perpendicular approach, to terminally place at the bilateral sacral ala. The stylets were removed and the radiofrequency probes with a 4mm active tip were then inserted. Needle tip position of the probes were verified in the AP, oblique, and lateral views. At each site, the medial branch nerve was stimulated at 2Hz to a maximum of 1- 2volts determined to finalize safe needle and electrode placement. The patient was awake and responsive during this portion of the procedure. Each target was anesthetized with 2mL of 2 % Sensorcaine anesthesia for lesioning and then each target was lesioned at 80 degrees Celsius for 2 minutes and 30 seconds. Tissue impedences were noted to be between 250 and 500 Ohms. PROCEDURE #2: Radiofrequency Ablation of lateral S1, S2, S3 Lateral Branches Using the AP fluoroscopic view for visualization of the lateral PSFA as defined by the pre-placed 27-gauge Quincke needles, appropriate skin starting positions were defined. Using the PSFA as a "clock-face", the positions were: S1; bilateral = 1 and 5 oclock S2; bilateral = 1 and 5 oclock S3; bilateral = 3 oclock Using fluoroscopic guidance, a 17g introducer needle was inserted sequentially onto the target positions described above until the introducer tip touched the bony surface of the sacrum. The stylet was withdrawn from the introducer and the radiofrequency probe with a 4 mm active tip was fully inserted into the introducer. A lateral view was obtained for standard reference. At each of the targets, needle placement was verified with the use of multi-planar fluoroscopy. The needle tip position was approximately 7 - 10mm lateral to the PSFA as determined by using an Epsilon ruler. At each site, the lateral branch nerve was stimulated at 2 Hz to a maximum of 1- 2 volts determined to finalize safe needle and electrode placement. The patient was awake and responsive during this portion of the procedure. Each target was anesthetized with 2 mL of 2 % Sensorcaine anesthesia for lesioning and then each target was lesioned at 80 degrees Celsius for 2 minutes and 30 seconds. Tissue impedences were noted to be between 250- 500 Ohms. At the conclusion of the lesioning the needles were removed and bandages placed over the needle placement sites and the patient returned to the supine position on a stretcher and transpo rted to the recovery room without hemodynamic, neurologic, or allergic reactions. Fluoroscopic images were printed for hard copy recording and digitally archived. FLUOROSCOPIC INTERPRETATION: Appropriate epidurogram obtained. Appropriate lesioning of the 10 targets noted. POST PROCEDURE EVALUATION: The patient was comfortable in the recovery room. The patient is aware that pain may worsen before remitting and 4 6 weeks may be required prior to the onset of pain relief. IMPRESSION: 1. Technically successful sacral lateral branch, lumbar dorsal ramus for denervation from L5-S3 on the bilateral without complication. 2. RTC in 2 weeks. 3. Estimated Blood Loss: None 4. Fluoroscopy time: 30 seconds
== END ==
LOC: RAD 07:51
PROVIDERS: ATTEND Family Medicine
DX: M47.817 Spondylosis without myelopathy or radiculopathy, lumbosacral region (principal)
CPT/HCPCS: 64635; 64640 ×3; J3490 ×2